=== PATIENT | female | born 1990 | race Caucasian/White ===

== ENCOUNTER 2022-07-27 07:55 | Emergency (ER) | payer OTHER ==
[2022-07-27 08:10] VITALS: BP 115/76; PULSE 77; RESP 18; TEMP 98.1
[2022-07-27 08:49] LABS: Basophils % (A) 0 %; Eosinophils # (A) 0.1 k/uL (0-0.7); Eosinophils % (A) 1 %; HCT 39.2 % (34.0-46.0); HGB 13.7 gm/dL (11.4-16.0); Lymphocytes # (A) 1.6 k/uL (1.0-4.8); Lymphocytes % (A) 21 %; MCH 31.6 pg (25.0-35.0); MCV 90.3 fL (80.0-100.0); Mean Platelet Volume 8.2; Monocytes # (A) 0.3 k/uL (0-1.0); Monocytes % (A) 4 %; Neutrophils # (A) 5.4 k/uL (1.3-7.7); Neutrophils % (A) 72 %; Platelet Count 211 k/uL (150-450); RBC 4.34 m/uL (3.80-5.40); RDW 11.6 % (11.5-15.5); WBC 7.5 k/uL (3.8-10.6)
[2022-07-27 08:54] LABS: Appearance,Urine Clear (Clear); Bilirubin,Urine Negative (Negative); Blood,Urine Negative (Negative); Color,Urine Yellow; Glucose,Urine (UA) Negative (Negative); Ketones,Urine Negative (Negative); Leukocyte Esterase,Urine Negative (Negative); Nitrite,Urine Negative (Negative); PH, Urine 7.5 (5.0-8.0); Protein,Urine Trace (Negative); Specific Gravity,Urine 1.023 (1.001-1.035); Urobilinogen,Urine <2.0 mg/dL (<2.0)
--- NOTE | 2022-07-27 09:04 | ED ---
Female Urogenital HPI - General Source: patient, RN notes reviewed Mode of arrival: ambulatory Limitations: no limitations <Brent Valenzuela - Last Filed: 07/27/22 10:02> <Jaquelin Jimenes - Last Filed: 07/30/22 22:35> - General Chief complaint: Vaginal Bleeding Stated complaint: 7 wks preg, vaginal bleeding Time Seen by Provider: 07/27/22 08:11 - History of Present Illness Initial comments: 32-year-old female presents emergency Department with chief complaint of vaginal bleeding early . Patient is A0 currently 7 weeks states she is scheduled see her [facility] next week but states that she had some spotting, bleeding throughout the night states that she has mild cramping but also symptoms are improving at this time. Patient states she has a positive blood type denies any dysuria she does not that she's been having diarrhea associated with eating. Patient denies any fevers chills nausea vomiting no chest pain or shortness breath (Brent Valenzuela) - Related Data Allergies Allergy/AdvReac Type Severity Reaction Status Date / Time No Known Allergies Allergy Verified 07/27/22 08:10 Review of Systems ROS Other: All systems not noted in ROS Statement are negative. <Brent Valenzuela - Last Filed: 07/27/22 10:02> ROS Other: All systems not noted in ROS Statement are negative. <Jaquelin Jimenes - Last Filed: 07/30/22 22:35> ROS Statement: Those systems with pertinent positive or pertinent negative responses have been documented in the HPI. Past Medical History Past Medical History: No Reported History History of Any Multi-Drug Resistant Organisms: None Reported Past Surgical History: Tonsillectomy Past Psychological History: No Psychological Hx Reported Smoking Status: Former smoker Past Alcohol Use History: None Reported Past Drug Use History: None Reported <Brent Valenzuela - Last Filed: 07/27/22 10:02> General Exam Limitations: no limitations General appearance: alert, in no apparent distress Head exam: Present: atraumatic, normocephalic, normal inspection Eye exam: Present: normal appearance, PERRL, EOMI. Absent: scleral icterus, conjunctival injection, periorbital swelling ENT exam: Present: normal exam, normal oropharynx, mucous membranes moist Neck exam: Present: normal inspection, full ROM. Absent: tenderness, meningismus, lymphadenopathy Respiratory exam: Present: normal lung sounds bilaterally. Absent: respiratory distress, wheezes, rales, rhonchi, stridor Cardiovascular Exam: Present: regular rate, normal rhythm, normal heart sounds. Absent: systolic murmur, diastolic murmur, rubs, gallop, clicks GI/Abdominal exam: Present: soft, normal bowel sounds. Absent: distended, tenderness, guarding, rebound, rigid <Brent Valenzuela - Last Filed: 07/27/22 10:02> Course Vital Signs 07/27/22 08:06 Temperature 98.1 F Pulse Rate 77 Respiratory 18 Rate Blood Pressure 115/76 O2 Sat by Pulse 97 Oximetry Medical Decision Making - Lab Data Result diagrams: 07/27/22 08:20 07/27/22 08:20 <Brent Valenzuela - Last Filed: 07/27/22 10:02> - Lab Data Result diagrams: 07/27/22 08:20 07/27/22 08:20 <Jaquelin Jimenes - Last Filed: 07/30/22 22:35> - Medical Decision Making 32-year-old female presented for vaginal bleeding early . Patient is a positive blood type. Ultrasound INTERPRETED shows evidence of single viable IUP heart rate 158, possible subchorionic hemorrhage. Patient's symptoms are consistent with this. Patient has a follow-up appointment next week with [facility] return parameters were discussed. (Brent Valenzuela) - Lab Data Lab Results 07/27/22 07/27/22 07/27/22 Range/Units 08:20 08:20 08:20 WBC 7.5 (3.8-10.6) k/uL RBC 4.34 (3.80-5.40) m/uL Hgb 13.7 (11.4-16.0) gm/dL Hct 39.2 (34.0-46.0) % MCV 90.3 (80.0-100.0) fL MCH 31.6 (25.0-35.0) pg MCHC 35.0 (31.0-37.0) g/dL RDW 11.6 (11.5-15.5) % Plt Count 211 (150-450) k/uL MPV 8.2 Neutrophils % 72 % Lymphocytes % 21 % Monocytes % 4 % Eosinophils % 1 % Basophils % 0 % Neutrophils # 5.4 (1.3-7.7) k/uL Lymphocytes # 1.6 (1.0-4.8) k/uL Monocytes # 0.3 (0-1.0) k/uL Eosinophils # 0.1 (0-0.7) k/uL Basophils # 0.0 (0-0.2) k/uL Sodium 136 L (137-145) mmol/L Potassium 4.1 (3.5-5.1) mmol/L Chloride 106 (98-107) mmol/L Carbon Dioxide 24 (22-30) mmol/L Anion Gap 6 mmol/L BUN 8 (7-17) mg/dL Creatinine 0.57 (0.52-1.04) mg/dL Est GFR (CKD-EPI)AfAm >90 (>60 ml/min/1.73 sqM) Est GFR (CKD-EPI)NonAf >90 (>60 ml/min/1.73 sqM) Glucose 86 (74-99) mg/dL Calcium 8.5 (8.4-10.2) mg/dL HCG, Quant 10905.3 mIU/mL Urine Color Yellow Urine Appearance Clear (Clear) Urine pH 7.5 (5.0-8.0) Ur Specific [place] 1.023 (1.001-1.035) Urine Protein Trace H (Negative) Urine Glucose (UA) Negative (Negative) Urine Ketones Negative (Negative) Urine Blood Negative (Negative) Urine Nitrite Negative (Negative) Urine Bilirubin Negative (Negative) Urine Urobilinogen <2.0 (<2.0) mg/dL Ur Leukocyte Esterase Negative (Negative) Blood Type Blood Type Recheck Bld Type Recheck Status 07/27/22 Range/Units 08:20 WBC (3.8-10.6) k/uL RBC (3.80-5.40) m/uL Hgb (11.4-16.0) gm/dL Hct (34.0-46.0) % MCV (80.0-100.0) fL MCH (25.0-35.0) pg MCHC (31.0-37.0) g/dL RDW (11.5-15.5) % Plt Count (150-450) k/uL MPV Neutrophils % % Lymphocytes % % Monocytes % % Eosinophils % % Basophils % % Neutrophils # (1.3-7.7) k/uL Lymphocytes # (1.0-4.8) k/uL Monocytes # (0-1.0) k/uL Eosinophils # (0-0.7) k/uL Basophils # (0-0.2) k/uL Sodium (137-145) mmol/L Potassium (3.5-5.1) mmol/L Chloride (98-107) mmol/L Carbon Dioxide (22-30) mmol/L Anion Gap mmol/L BUN (7-17) mg/dL Creatinine (0.52-1.04) mg/dL Est GFR (CKD-EPI)AfAm (>60 ml/min/1.73 sqM) Est GFR (CKD-EPI)NonAf (>60 ml/min/1.73 sqM) Glucose (74-99) mg/dL Calcium (8.4-10.2) mg/dL HCG, Quant mIU/mL Urine Color Urine Appearance (Clear) Urine pH (5.0-8.0) Ur Specific [place] (1.001-1.035) Urine Protein (Negative) Urine Glucose (UA) (Negative) Urine Ketones (Negative) Urine Blood (Negative) Urine Nitrite (Negative) Urine Bilirubin (Negative) Urine Urobilinogen (<2.0) mg/dL Ur Leukocyte Esterase (Negative) Blood Type A Positive Blood Type Recheck No Previous Record Bld Type Recheck Status ABR ONLY Disposition Is patient prescribed a controlled substance at d/c from ED?: No Time of Disposition: 09:55 <Brent Valenzuela - Last Filed: 07/27/22 10:02> <Jaquelin Jimenes - Last Filed: 07/30/22 22:35> Clinical Impression: Early stage of , Subchorionic hemorrhage Disposition: HOME SELF-CARE Condition: Stable Instructions (If sedation given, give patient instructions): Subchorionic Hemorrhage (ED) Additional Instructions: Please return to the Emergency Department if symptoms worsen or any other concerns. Referrals: None,Stated [Primary Care Provider] - 1-2 days
[2022-07-27 09:05] LABS: African American GFR (CKD) >90 (>60 ml/min/1.73 sqM); Anion Gap 6 mmol/L; Blood Urea Nitrogen 8 mg/dL (7-17); Calcium 8.5 mg/dL (8.4-10.2); Carbon Dioxide 24 mmol/L (22-30); Chloride 106 mmol/L (98-107); Glucose 86 mg/dL (74-99); Non-African American GFR(CKD) >90 (>60 ml/min/1.73 sqM); Potassium 4.1 mmol/L (3.5-5.1); Sodium 136 mmol/L (137-145)
--- NOTE | 2022-07-27 09:44 | US ---
EXAMINATION TYPE: Transabdominal DATE OF EXAM: 07/27/2022 9:06 AM COMPARISON: NONE CLINICAL HISTORY: bleeding early preg, pain. Bleeding, pain. Hx 1 . A1. EXAM PERFORMED: Transabdominal (TA) EXAM MEASUREMENTS: GESTATIONAL AGE / DATING Physician Established: Not yet established. Dates by LMP: (7 weeks/2 days) EDC: 03/13/2023 Dates by First Scan: This is first scan. Dates by Current Scan for: (7 weeks/1 day) EDC: 03/14/2023 MATERNAL ANATOMY Uterus: 9.1 x 9.2 x 6.7 cm. Right Ovary: 4.4 x 1.9 x 1.7 cm. Appears wnl. Left Ovary: 3.0 x 1.7 x 1.2 cm. Appears wnl. Post CDS / Adnexa: Appears wnl. Presence of free fluid: Not seen. Presence of corpus luteal cyst: Not seen. Presence of subchorionic bleed: Possible bleed. Hypoechoic, heterogeneous area seen to the left of th e gestational sac: 2.1 x 1.1 x 0.9 cm. GESTATION / SURVEY CRL: 1.0 cm. (7 weeks/1 day) Yolk Sac (normal less than 6mm): 3.1 mm. Heart Rate: 158 bpm Rhythm: Normal IUP: Viable IUP Date of LMP: 06/06/2022 Beta HcG (if available): Not available Single live intrauterine gestation as gestational sac, yolk sac, and pole are seen. No free flu id in pelvic cul-de-sac. Inferior to the gestational sac there is a regular small hypoechoic oval are a could reflect fibroid measuring near 2.1 cm long axis. Subchorionic hemorrhage not excluded. Both ovaries are seen. No suspicious extra ovarian adnexal masses. IMPRESSION: Single live intrauterine gestation, mean crown-rump length 1.0 cm corresponding to 7 week 1 day old f etus.
[2022-07-27 10:15] LABS: HCG,Quantitative Serum 98113.3 mIU/mL
== END 2022-07-27 10:44 | disposition home or self-care (01) ==
LOC: EC 07:55
DX: O46.91 Antepartum hemorrhage, unspecified, first trimester (principal); Z3A.01 Less than 8 weeks gestation of pregnancy; Z87.891 Personal history of nicotine dependence
CPT/HCPCS: 36415; 76801; 80048; 81003; 84702; 85025; 86900; 86901; 99284

== ENCOUNTER 2024-01-10 17:01 | Emergency (ER) | payer BC, OTHER ==
[2024-01-10 17:31] VITALS: BP 116/78; PULSE 85; RESP 18; TEMP 98.1
--- NOTE | 2024-01-10 18:21 | US ---
EXAMINATION TYPE: Transabdominal DATE OF EXAM: 01/10/2024 5:54 PM COMPARISON: NONE CLINICAL INDICATION: Female, 33 years old with history of Vaginal bleeding; bleeding EXAM PERFORMED: Transabdominal (TA) EXAM MEASUREMENTS: GESTATIONAL AGE / DATING Physician Established: (9 weeks/0 days) EDC: 08/14/2024 Dates by LMP: (9 weeks/0 days) EDC: 08/14/2024 Dates by First Scan: No previous this is first scan Dates by Current Scan for: (6 weeks/6 days) MATERNAL ANATOMY Uterus: 7.8 x 6.2 x 8.2 cm Right Ovary: Obscured by bowel gas. Left Ovary: Obscured by bowel gas. Post CDS / Adnexa: wnl Presence of free fluid: no Presence of corpus luteal cyst: no Presence of subchorionic bleed: no GESTATION / SURVEY CRL: 7.95 mm,. (6 weeks/6 days) Yolk Sac (normal less than 6mm): 3mm IUP: No cardiac activity noted on today's scan. Question demise. Beta HcG (if available): Not available at this time IMPRESSION: Intrauterine with ultrasound age of 6 weeks 6 days. Heart rate is not detected at this time , in addition dates are discordant with last menstrual period. Given crown-rump length is greater soni n 7 mm, a heart tones should be expected at this time. This could represent demise. Close clinical follow-up and serial beta hCG recommended.
[2024-01-10 20:03] LABS: Basophils % (A) 1 %; Eosinophils # (A) 0.2 k/uL (0-0.7); Eosinophils % (A) 2 %; HCT 42.5 % (34.0-46.0); Lymphocytes # (A) 2.3 k/uL (1.0-4.8); Lymphocytes % (A) 26 %; MCH 28.9 pg (25.0-35.0); MCHC 32.8 g/dL (31.0-37.0); Mean Platelet Volume 8.1; Monocytes # (A) 0.3 k/uL (0-1.0); Monocytes % (A) 4 %; Neutrophils # (A) 5.7 k/uL (1.3-7.7); Neutrophils % (A) 67 %; Platelet Count 212 k/uL (150-450); RBC 4.83 m/uL (3.80-5.40); WBC 8.5 k/uL (3.8-10.6)
[2024-01-10 20:16] LABS: ALT 13 U/L (4-34); AST 16 U/L (14-36); African American GFR (CKD) >90 (>60 ml/min/1.73 sqM); Albumin 4.8 g/dL (3.5-5.0); Alkaline Phosphatase 57 U/L (38-126); Anion Gap 11 mmol/L; Blood Urea Nitrogen 11 mg/dL (7-17); Calcium 8.9 mg/dL (8.4-10.2); Carbon Dioxide 21 mmol/L (22-30); Chloride 106 mmol/L (98-107); Glucose 85 mg/dL (74-99); Non-African American GFR(CKD) >90 (>60 ml/min/1.73 sqM); Potassium 3.7 mmol/L (3.5-5.1); Sodium 138 mmol/L (137-145); Total Bilirubin 0.5 mg/dL (0.2-1.3); Total Protein 7.6 g/dL (6.3-8.2)
[2024-01-10 20:57] LABS: HCG,Quantitative Serum 26670.4 mIU/mL
--- NOTE | 2024-01-10 21:08 | ED ---
General Adult HPI - General Chief complaint: Vaginal Bleeding Stated complaint: Vaginal bleeding-9 weeks preg Time Seen by Provider: 01/10/24 17:15 Source: patient Mode of arrival: ambulatory Limitations: no limitations - History of Present Illness Initial comments: 33-year-old female who is she 6 P4 who presents emergency department reporting vaginal bleeding. Patient is 9 weeks . Follows with [facility]. States that she has had vaginal bleeding for the past 3 days. Started having abdominal cramping today. Reports that she had a normal ultrasound demonstrating an intrauterine . She has not had any complications with this thus far. She denies any abdominal trauma. No changes in her bowel or bladder habits. No fevers. No other alleviating, precipitating or modifying factors - Related Data Allergies Allergy/AdvReac Type Severity Reaction Status Date / Time No Known Allergies Allergy Verified 01/10/24 17:15 Review of Systems ROS Statement: Those systems with pertinent positive or pertinent negative responses have been documented in the HPI. ROS Other: All systems not noted in ROS Statement are negative. Past Medical History Past Medical History: No Reported History History of Any Multi-Drug Resistant Organisms: None Reported Past Surgical History: Tonsillectomy Past Psychological History: No Psychological Hx Reported Smoking Status: Former smoker Past Alcohol Use History: None Reported Past Drug Use History: None Reported General Exam Limitations: no limitations General appearance: alert, in no apparent distress Head exam: Present: atraumatic, normocephalic, normal inspection Eye exam: Present: normal appearance, PERRL, EOMI. Absent: scleral icterus, conjunctival injection, periorbital swelling ENT exam: Present: normal exam, mucous membranes moist Neck exam: Present: normal inspection. Absent: tenderness, meningismus, lymphadenopathy Respiratory exam: Present: normal lung sounds bilaterally. Absent: respiratory distress, wheezes, rales, rhonchi, stridor Cardiovascular Exam: Present: regular rate, normal rhythm, normal heart sounds. Absent: systolic murmur, diastolic murmur, rubs, gallop, clicks GI/Abdominal exam: Present: soft, normal bowel sounds. Absent: distended, tenderness, guarding, rebound, rigid Extremities exam: Present: normal inspection, full ROM, normal capillary refill. Absent: tenderness, pedal edema, joint swelling, calf tenderness Back exam: Present: normal inspection Neurological exam: Present: alert, oriented X3, CN II-XII intact Psychiatric exam: Present: normal affect, normal mood Skin exam: Present: warm, dry, intact, normal color. Absent: rash Course Vital Signs 01/10/24 17:11 Temperature 98.1 F Pulse Rate 85 Respiratory 18 Rate Blood Pressure 116/78 O2 Sat by Pulse 99 Oximetry Medical Decision Making - Medical Decision Making Was pt. sent in by a medical professional or institution (, [facility], [employer] [employer], urgent care, hospital, or prison...) When possible be specific @ -No Did you speak to anyone other than the patient for history (EMS, parent, family, police, friend...)? What history was obtained from this source @ -No Did you review nursing and triage notes (agree or disagree)? Why? @ -I reviewed and agree with nursing and triage notes Were old charts reviewed (outside hosp., previous admission, EMS record, old EKG, old radiological studies, urgent care reports/EKG's, prison records)? Report findings @ -No old charts were reviewed Differential Diagnosis (chest pain, altered mental status, abdominal pain women, abdominal pain men, vaginal bleeding, weakness, fever, dyspnea, syncope, h eadache, dizziness, GI bleed, back pain, seizure, CVA, palpatations, mental health, musculoskeletal)? @ -Differential Vaginal Bleeding: Spontaneous , threatened , molar , ectopic , bloody show, incompetent cervix, abruptioplacenta, placenta previa, uterine rupture, dysfunctional uterine bleeding, hemorrhage, uterine fibroids, this is not meant to be an all-inclusive list. EKG interpreted by me (3pts min.). @ -Not done X-rays interpreted by me (1pt min.). @ -None done CT interpreted by me (1pt min.). @ -None done U/S interpreted by me (1pt. min.). @ -Yes and demonstrates a dating 6 weeks 6 days. There is no heart tones. This is suspicious for demise What testing was considered but not performed or refused? (CT, X-rays, U/S, labs)? Why? @ -None What meds were considered but not given or refused? Why? @ -None Did you discuss the management of the patient with other professionals (professionals i.e. , PA, [employer], lab, RT, psych nurse, social media intern, credit support specialist, teacher, bsa officer, family preservation caseworker)? Give summary @ -No Was smoking cessation discussed for >3mins.? @ -No Was critical care preformed (if so, how long)? @ -No Were there social determinants of health that impacted care today? How? (Homelessness, low income, unemployed, alcoholism, drug addiction, transportation, low edu. Level, literacy, decrease access to med. care, prison, rehab)? @ -No Was there de-escalation of care discussed even if they declined (Discuss DNR or withdrawal of care, Hospice)? DNR status @ -No What co-morbidities impacted this encounter? (DM, HTN, Smoking, COPD, CAD, Cancer, CVA, ARF, Chemo, Hep., AIDS, mental health diagnosis, sleep apnea, morbid obesity)? @ -None Was patient admitted / discharged? Hospital course, mention meds given and route, prescriptions, significant lab abnormalities, going to OR and other per tinent info. @ -Upon arrival patient was seen and evaluated in room 28. Thorough history and physical exam was performed. Laboratory studies are conducted. Ultrasound was performed. I discussed the results with the patient. Informed her that if her previous ultrasound had demonstrated cardiac activity with normal dating that today's ultrasound is highly suspicious for demise. At this time the patient be discharged home and needs to follow-up with [facility] for further management. She may begin to bleed heavier. If the pain is controlled and the bleeding is not significant she may follow-up with her [facility]. If the pain becomes uncontrolled or the patient has significant vaginal bleeding she must return to the emergency department. Patient understood this. She did seem upset in regards to the length of the ER visit and reported that I could provide her nothing further in regards to care or empathy. Patient was discharged home with a guarded prognosis Undiagnosed new problem with uncertain prognosis? @ -No Drug Therapy requiring intensive monitoring for toxicity (Heparin, Nitro, Insulin, Cardizem)? @ -No Were any procedures done? @ -No Diagnosis/symptom? @ -Acute vaginal bleeding, first trimester , suspected demise Acute, or Chronic, or Acute on Chronic? @ -Acute Uncomplicated (without systemic symptoms) or Complicated (systemic symptoms)? @ -Complicated Side effects of treatment? @ -No Exacerbation, Progression, or Severe Exacerbation? @ -No Poses a threat to life or bodily function? How? (Chest pain, [place], [place], pneumonia, PE, COPD, DKA, ARF, appy, cholecystitis, CVA, Diverticulitis, Homicidal, Suicidal, threat to staff... and all critical care pts) @ -No - Lab Data Result diagrams: 01/10/24 19:57 01/10/24 19:57 Lab Results 01/10/24 01/10/24 01/10/24 Range/Units 19:57 19:57 19:57 WBC 8.5 (3.8-10.6) k/uL RBC 4.83 (3.80-5.40) m/uL Hgb 14.0 (11.4-16.0) gm/dL Hct 42.5 (34.0-46.0) % MCV 88.0 (80.0-100.0) fL MCH 28.9 (25.0-35.0) pg MCHC 32.8 (31.0-37.0) g/dL RDW 13.0 (11.5-15.5) % Plt Count 212 (150-450) k/uL MPV 8.1 Neutrophils % 67 % Lymphocytes % 26 % Monocytes % 4 % Eosinophils % 2 % Basophils % 1 % Neutrophils # 5.7 (1.3-7.7) k/uL Lymphocytes # 2.3 (1.0-4.8) k/uL Monocytes # 0.3 (0-1.0) k/uL Eosinophils # 0.2 (0-0.7) k/uL Basophils # 0.0 (0-0.2) k/uL Sodium 138 (137-145) mmol/L Potassium 3.7 (3.5-5.1) mmol/L Chloride 106 (98-107) mmol/L Carbon Dioxide 21 L (22-30) mmol/L Anion Gap 11 mmol/L BUN 11 (7-17) mg/dL Creatinine 0.68 (0.52-1.04) mg/dL Est GFR (CKD-EPI)AfAm >90 (>60 ml/min/1.73 sqM) Est GFR (CKD-EPI)NonAf >90 (>60 ml/min/1.73 sqM) Glucose 85 (74-99) mg/dL Calcium 8.9 (8.4-10.2) mg/dL Total Bilirubin 0.5 (0.2-1.3) mg/dL AST 16 (14-36) U/L ALT 13 (4-34) U/L Alkaline Phosphatase 57 (38-126) U/L Total Protein 7.6 (6.3-8.2) g/dL Albumin 4.8 (3.5-5.0) g/dL HCG, Quant 20589.4 mIU/mL Blood Type A Positive Blood Type Recheck A Pos Bld Type Recheck Status No Antibody Screen NEGATIVE Spec Expiration Date 01/13/20242356 Disposition Clinical Impression: First trimester bleeding, Threatened miscarriage, demise Disposition: HOME SELF-CARE Condition: Stable Instructions (If sedation given, give patient instructions): Threatened Miscarriage (ED) Additional Instructions: You need to have a repeat ultrasound in the next few days. You may start to bleed heavier. If your bleeding is uncontrolled, more than 1 pad per hour, return to the emergency department. Follow-up with your [facility]. They must trend your hormone levels until they return to 0. Is patient prescribed a controlled substance at d/c from ED?: No Referrals: None,Stated [Primary Care Provider] - 1-2 days Time of Disposition: 21:07
== END 2024-01-10 21:16 | disposition home or self-care (01) ==
LOC: EC 17:01
DX: O02.1 Missed abortion (principal); Z87.891 Personal history of nicotine dependence
CPT/HCPCS: 36415; 76801; 80053; 84702; 85025; 86850; 86900; 86901; 99284